=== PATIENT | female | born 1990 | race Caucasian/White ===

== ENCOUNTER 2018-09-30 16:51 | Inpatient (IN) ==
--- OUTSIDE RECORDS SUMMARY | 2018-09-30 16:55 | External Medical Summary | Continuity of Care Document ---
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 Refills: 0 Subutex 8 MG SUBL , M.D. Refills: 0 Medical Marijuana , M.D. Refills: 0 Procedures Non-stress test Date: 27-Sep-2018 History of Oral Surgery Tooth Extraction Status: Completed History of Pilonidal Cyst Resection Stat us: Completed Immunizations Fluzone Quadrivalent 0.5 ML Intramuscular Suspension P refilled Syringe On: 23-Mar-2018 16:22 Lot #: [id number], SANOFI PASTEUR Tdap (Adacel) On: 07-Jul-2018 16:17 Lot #: [id number], SANOFI PASTEUR Family History Grandfather Family history of diabetes mellitus (V18.0) (Z83.3) Status: Active Plan of Treatment Planned Observations Planned Goals not documented Results Non-stress test (Pending) Laboratory: In House 27-Sep-2018 14:17 Non-Stress Test Reactive Vital Signs 29-Sep-2018 14:57 Systolic 126 mm[Hg] Diastolic 80 mm[Hg] Weight 236.2 lb Height 66.5 in BSA Calculated 2.16 m2 BMI Calculated 37.55 kg/m2 27-Sep-2018 13:53 Systolic 118 mm[Hg] Diastolic 82 mm[Hg] Weight 235.5 lb Height 66.5 in BSA Calculated 2.16 m2 BMI Calculated 37.44 kg/m2 22-Sep-2018 15:45 Systolic 124 mm[Hg] Diastolic 80 mm[Hg] Weight 232.6 lb Height 66.5 in BSA Calculated 2.14 m2 BMI Calculated 36.98 kg/m2 15-Sep-2018 16:09 Systolic 122 mm[Hg] Diastolic 76 mm[Hg] Weight 229.0 lb Height 66.5 in BSA Calculated 2.13 m2 BMI Calculated 36.41 kg/m2 01-Sep-2018 15:18 Systolic 110 mm[Hg] Diastolic 80 mm[Hg] Weight 231.125 lb Height 66.5 in BSA Calculated 2.14 m2 BMI Calculated 36.75 kg/m2 Encounters Appointment; Karan Orozco M.D. 29-Sep-2018 14:40 Encounter Diagnosis: Problem not documented Appointment; So Orellana M.D. 27-Sep-2018 14:00 Encounter Diagnosis: Problem not documented Appointment; OB SC1, Nonstress Test 27-Sep-2018 13:30 Encounter Diagnosis: Problem not documented Appointment; Kaylee Sanford M.D. 22-Sep-2018 15:20 Encounter Diagnosis: Problem not documented Appointment; Norma Boo M.D. 15-Sep-2018 14:50 Encounter Diagnosis: Problem not documented Appointment; Kaylee Sanford M.D. 08-Sep-2018 9:50 Encounter Diagnosis: Problem not documented Appointment; So Orellana M.D. 01-Sep-2018 15:10 Encounter Diagnosis: Problem not documented Appointment; Norma Boo M.D. 25-Aug-2018 15:00 Encounter Diagnosis: Problem not documented Appointment; Rosa Franklin DO 11-Aug-2018 13:20 Encounter Diagnosis: Problem not documented Appointment; Francy Pham M.D. 21-Jul-2018 15:10 Encounter Diagnosis: Problem not documented Appointment; Usha Gil M.D. 07-Jul-2018 15:40 Encounter Diagnosis: Problem not documented Appointment; Rosa Franklin DO 16-Jun-2018 15:20 Encounter Diagnosis: Problem not documented Appointment; OBGYN SC2, Ultrasound 16-Jun-2018 14:00 Encounter Diagnosis: Problem not documented Appointment; Karan Orozco M.D. 09-May-2018 15:20 Encounter Diagnosis: Problem not documented Appointment; OBGYN SC2, Ultrasound 09-May-2018 14:15 Encounter Diagnosis: Problem not documented Appointment; Karan Orozco M.D. 05-May-2018 15:00 Encounter Diagnosis: Problem not documented Appointment; EMAIL DEVELOPER SC1, Procedure Room 05-May-2018 15:00 Encounter Diagnosis: Problem not documented Appointment; Rosa Franklin DO 26-Apr-2018 14:00 Encounter Diagnosis: Problem not documented Appointment; Norma Boo M.D. 11-Apr-2018 13:50 Encounter Diagnosis: Problem not documented Appointment; Karan Orozco M.D. 23-Mar-2018 12:00 Encounter Diagnosis: Problem not documented Appointment; OB SC1, Procedure Rm 23-Mar-2018 12:00 Encounter Diagnosis: Problem not documented Appointment; OBGYN SC1, Ultrasound 23-Mar-2018 12:00 Encounter Diagnosis: Problem not documented Appointment; OB SC1, Nursing Station 15-Mar-2018 10:45 Encounter Diagnosis: Problem not documented Appointment; OB SC1, Nursing Station 14-Mar-2018 8:45 Encounter Diagnosis: Problem not documented
[2018-09-30] MEDS ORDERED: PENICILLIN G POTASSIUM 3 MU in DEXTROSE 5% 100 ML IV PRN (17:35)
[2018-09-30] MEDS ORDERED: OXYTOCIN 30 UNITS/500 ML BAG IV PRN ×3 (17:35→23:27)
[2018-09-30] MEDS ORDERED: LACTATED RINGER'S 1,000 ML IV PRN (17:35)
[2018-09-30] MEDS ORDERED: PENICILLIN G POTASSIUM 6 MU in DEXTROSE 5% 250 ML IV STA (17:35)
--- NOTE | 2018-09-30 17:35 | History & Physical Report ---
Date of Service September 30, 2018 Assessment & Plan (1) Full-term PROM with onset of labor more than 24 hours after rupture: admit, iv, labs. gbs pos, start pcn. start pitocin if no labor by 6hr from rom. pt aware. (2) Group B streptococcal infection during : History of Present Illness Chief Complaint: leaking fluid Primary Care Provider: Bjorn Richard PA-C 28yo at 40+wks ega presents to L&D with above cc. Clear fluid leak since 1am. Gross srom per nurse. No ctx. pnc c/b 1. GBS pos 2. 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 Smoker 4. Medical MJ use. 5. Abnl pap, needs colpo pp Pnl: rh pos, ri, gbs pos obh: g1 gynh: no stds, abnl pap, colpo in preg, needs repeat pp pmh: h/o opiod abuse, smoker, medical MJ use, depression psh: wisdom teeth, pilonidal cyst sh: +tobacco, mj, no etoh fh: no gregory anom or mr allg: nkda meds: pnv, subutex, medical MJ Patient History Social History Preferred Language: Polish Beliefs That Will Affect Care: None marital status: Single Current Living Situation: Significant Other Other Information That Helps Us Care for You: No Feels Safe at Home: Yes Safety Concerns: Feels Safe At This Time Smoking Status: Current every day smoker Tobacco Type: cigarettes Cigarettes Per Day: 3 Hx Alcohol Use: No Hx Substance Use: Yes substance use type: marijuana Review of Systems per hpi Physical Exam Constitutional: WD/WN, vitals as above Respiratory: normal respiratory effort, lungs clear to auscultation Cardiovascular: Rate/Rhythm: regular rate and regular rhythm Gastrointestinal (Abdomen): gravid nt, efw 7-8# Musculoskeletal: nt calves. Genitourinary: OB Exam Abdomen: + vertex (by us) Manual OB Exam: + cervical dilation 3 cm, + cervical effacement (75%) and + station -2 OB Exam Monitor Tracing: + external FHT monitor used (130 mod variability, categ 1), + external uterine monitor used (no ctx) and + category I cephalic by us Results & Data Vital Signs (Past 12 Hours) Vital Signs Temp Pulse Resp BP 09/30/18 16:54 36.7 C 108 H 20 121/76
[2018-09-30 18:10] LABS: Hematocrit (blood only) 36.3 % (37-47); Hemoglobin 11.9 g/dL (12.0-16.0); Mean Corpuscular Volume 80.8 fL (80-100); Platelet Count 282 K/uL (130-400); RDW Coefficient of Variation 14.7 % (11.5-14.5); RDW Standard Deviation 43.3 fL (36.4-46.3); Red Blood Count 4.49 M/uL (4.2-5.4); White Blood Count 13.51 K/uL (4.8-10.8)
[2018-09-30 18:13] LABS: Mean Corpuscular Hgb Conc 32.8 g/dL (32-36)
[2018-09-30 18:28] LABS: Amphetamines+Metham, Urine Neg (Neg); Barbiturates, Urine Neg (Neg); Benzodiazepine, Urine Neg (Neg); Cocaine, Urine Neg (Neg); MDMA (Ecstacy), Urine Neg (Neg); Methadone, Urine Neg (Neg); Opiate, Urine Neg (Neg); Phencyclidine, Urine Neg (Neg)
[2018-09-30] MEDS ORDERED: BUPIVACAINE 0.25% 30 ML VIAL ONE (20:44)
[2018-09-30] MEDS ORDERED: ePHEDrine sulfate 50 MG/ML AMP ONE (20:45)
[2018-09-30] MEDS ORDERED: fentaNYL citrate 100 MCG/2 ML VIAL ONE (20:45)
[2018-09-30] MEDS ORDERED: fentaNYL 2MCG/ML ROPIV 1.25MG/ML 100 ML BAG EPI ONE (20:46)
--- NOTE | 2018-09-30 20:51 | Anesthesiology Consultation ---
Date of Service September 30, 2018 Assessment & Plan (1) Encounter for pre-operative examination: Chart Review Chart Review: Patient NOT seen in Pre Admission Testing and Acceptable Risk for Labor Epidural Consults Requested none History Height/Weight Height: 5 ft 6 in Weight: 106.594 kg Allergies Allergy/AdvReac Type Severity Reaction Status Date / Time No Known Allergies Allergy Verified 09/30/18 18:04 Medications Home Medications Medication Instructions Recorded Confirmed Last Taken buprenorphine HCl 8 mg SUBLINGUAL DAILY 09/30/18 09/30/18 09/29/18 10:00 vit-iron fum-folic ac 1 tab PO DAILY 09/30/18 09/30/18 09/30/18 08:00 [ Vitamin] Active Medications Generic Name Dose Route Start Last Admin Trade Name Freq PRN Reason Stop Dose Admin Lactated Ringer's 1,000 mls @ 125 mls/hr 09/30/18 17:35 09/30/18 18:26 Lr IV 10/02/18 17:34 125 mls/hr .Q8H PRN Administration L&D Protocol Protocol Oxytocin 30 units in 500 mls @ 3 mls/hr 09/30/18 17:42 09/30/18 20:30 Pitocin IV 10/02/18 17:41 0.18 units/hr .Q24H PRN 3 mls/hr Labor Induction/Augmentation Titration Protocol 0.18 UNITS/HR Past Medical History Medical History History of abnormal cervical Pap smear ASCUS PROBABLE MARTA I, REPEAT COLPO IN 6 WEEKS complicated by subutex maintenance, antepartum took subutex 09/29/2018 Exercise / Class Metabolic Activity II 4-5 Yardwork/Stairs/Walk up hill Past Surgical History pilonidal cyst Past Anesthesia History No Hx of Anesthesia Complications and No Family Hx of Anesthesia Complications History of PONV No Hx of PONV and No Hx of Motion Sickness Social History Smoking Status: Current every day smoker tobacco type: cigarettes Smoking cigarettes per day: 3 Hx Alcohol Use: No Hx Substance Use: Yes substance use type: marijuana Physical Exam Vital Signs Last Vital Signs Temp 37.0 C 09/30/18 19:00 Pulse 85 09/30/18 20:23 Resp 18 09/30/18 19:00 BP 126/89 09/30/18 20:23 Testing Laboratory Results 09/30/18 17:56
[2018-09-30] MEDS ORDERED: OXYCODONE/ACETAMINOPHEN 5mg/325mg TAB PO PRN (23:27)
[2018-09-30] MEDS ORDERED: ACETAMINOPHEN 325 MG TAB PO PRN (23:27)
[2018-09-30] MEDS ORDERED: OXYTOCIN 20 UNITS in LACTATED RINGER'S 1,000 ML IV SCH (23:30)
[2018-09-30] MEDS ORDERED: SUPERCREAM 0.870% 15 GM JAR EXT PRN (23:37)
[2018-09-30] MEDS ORDERED: DIPHTHERIA/TETANUS/PERTUSSIS 0.5 ML SYR/VIAL IM ONE (23:37)
[2018-09-30] MEDS ORDERED: HYDROCORTISONE ACETATE 25 MG SUPP PR PRN (23:37)
[2018-09-30] MEDS ORDERED: BENZOCAINE 20% AER SPR 82.5 GM CAN EXT PRN (23:37)
--- NOTE | 2018-10-01 00:16 | Delivery Summary ---
DATE OF OPERATION: 09/30/2018 DELIVERY SUMMARY: The patient dilated to complete and pushed to deliver viable female , Apgars 8 and 9 via over small vaginal laceration. Mouth and nose bulb suctioned at the perineum. Nuchal cord x1 noted and not reduced. The shoulders and body delivered through. vigorous and crying at . Cord blood obtained. Placenta delivered spontaneous and intact, 3-vessel cord. Hemostasis achieved with dilute Pitocin and uterine massage. Cervix and sulci intact. Small vaginal laceration repaired with a single [id number] suture of 3-0 Vicryl for excellent hemostasis. EBL 300 mL. Mother and baby stable in recovery. I attest to the content of the Intraoperative Record and any orders documented therein. Any exception s are noted below.
--- NOTE | 2018-10-01 02:33 | Anesthesia Procedure Note ---
Date of Service October 01, 2018 Anesthesia Post Epidural Note Vital Signs Vital Signs: Temp Pulse Resp BP Pulse Ox 36.8 C 98 H 18 125/67 97 09/30/18 23:43 10/01/18 01:42 10/01/18 00:36 10/01/18 01:42 09/30/18 23:08 Pain Intensity Bilateral Abdomen: Pain Intensity: 5 Notes Mental Status: alert / awake / arousable Patient Amnestic to Procedure: No Nausea / Vomiting: adequately controlled Pain: adequately controlled Airway Patency, RR, SpO2: stable & adequate BP & HR: stable & adequate Hydration State: stable & adequate Neuraxial Anesthesia: was administered and sensory block is resolving Anesthetic Complications: no major complications apparent and Pt Satisfied with anesthetic care Epidural: Removed without complications and With tip intact
[2018-10-01] MEDS: IBUPROFEN 600 MG TAB PO PRN ×3 (05:55→21:06)
--- NOTE | 2018-10-01 07:55 | Obstetrical Progress Note ---
Date of Service October 01, 2018 Assessment & Plan (1) Normal delivery at term: stable, routine care. Subjective Ambulation: ambulating normally Voiding: no voiding problems Diet Tolerance:: regular diet Lochia:: Small Feeding Type:: breast feeding doing well Physical Exam Constitutional WD/WN, vitals as above Respiratory normal respiratory effort, lungs clear to auscultation Cardiovascular Rate/Rhythm: regular rate and regular rhythm Gastrointestinal (Abdomen) Inspection/Auscultation: abdomen normal to inspection Percussion/Palpation: abdomen soft Fundus firm 2cm down Musculoskeletal nt calves Psychiatric A+Ox3, euthymic affect Results & Data Vital Signs (Past 12 Hours) Vital Signs Temp Pulse Pulse Resp BP BP Pulse Ox 10/01/18 07:44 36.8 C 82 16 118/77 10/01/18 02:10 36.9 C 90 18 120/82 10/01/18 01:42 98 H 125/67 10/01/18 01:26 96 H 132/77 10/01/18 01:11 88 131/74 10/01/18 00:57 90 130/61 10/01/18 00:42 86 153/73 H 10/01/18 00:36 90 18 143/88 H 10/01/18 00:11 93 H 130/67 09/30/18 23:56 100 H 129/68 09/30/18 23:46 93 H 130/60 09/30/18 23:43 36.8 C 93 H 18 178/74 H 09/30/18 23:26 101 H 117/78 09/30/18 23:22 102 H 112/71 09/30/18 23:08 106 H 97 09/30/18 23:03 100 H 98 09/30/18 22:58 99 H 98 09/30/18 22:57 103 H 112/80 09/30/18 22:53 98 H 98 09/30/18 22:48 105 H 95 09/30/18 22:47 98 H 94 09/30/18 22:43 96 H 96 09/30/18 22:41 93 H 108/71 09/30/18 22:38 99 H 96 09/30/18 22:33 96 H 96 09/30/18 22:30 20 09/30/18 22:28 101 H 95 09/30/18 22:27 90 105/66 09/30/18 22:23 92 H 96 09/30/18 22:18 90 97 09/30/18 22:13 83 96 09/30/18 22:11 82 129/85 09/30/18 22:08 81 96 09/30/18 22:03 80 97 09/30/18 21:58 81 96 09/30/18 21:57 85 132/91 09/30/18 21:53 97 H 98 09/30/18 21:48 86 96 09/30/18 21:44 86 134/88 09/30/18 21:43 87 97 09/30/18 21:40 85 131/81 09/30/18 21:38 91 H 97 09/30/18 21:37 91 H 132/74 09/30/18 21:34 93 H 123/80 09/30/18 21:33 95 H 97 09/30/18 21:31 48 L 125/75 09/30/18 21:28 88 136/67 99 09/30/18 21:25 87 134/80 09/30/18 21:23 92 H 100 09/30/18 21:22 86 132/80 09/30/18 21:19 91 H 123/71 09/30/18 21:18 82 100 09/30/18 21:16 86 125/59 L 09/30/18 21:15 85 116/62 09/30/18 21:13 87 100 09/30/18 21:10 132/89 09/30/18 21:08 83 100 09/30/18 21:06 74 132/88 09/30/18 21:03 90 100 09/30/18 21:00 36.8 C 20 09/30/18 20:58 88 100 09/30/18 20:53 83 100 09/30/18 20:23 85 126/89
[2018-10-01] MEDS: DOCUSATE SODIUM 100 MG CAP PO SCH ×2 (08:54→21:06)
[2018-10-01] MEDS: PRENATAL VITAMIN 1 TAB PO SCH (08:54)
[2018-10-01] MEDS: BUPRENORPHINE HCL 8 MG SUBL SL SCH (08:55)
--- NOTE | 2018-10-02 05:55 | Obstetrical Progress Note ---
Date of Service <Fritz Lundberg MD - Last Filed: 10/02/18 06:31> October 02, 2018 Assessment & Plan <Fritz Lundberg MD - Last Filed: 10/02/18 06:31> (1) Normal delivery at term: Marry Dempsey is a 28yo who presented at 40+ now s/p PPD#2 - She is GBS positive, Rh positive, Rubella Immune - Feels well today. Eating well, voiding well, ambulating well. - Pain well controlled with ibuprofen 600mg Q4H PRN. - well, some difficulty with latch but improving - Baby will likely stay 4-5 days per peds 2/2 subutex treatment during - Routine care - Slightly tearful on whether it was OK she was on subutex during . Reassurance provided, continue to follow and eval for PP depression at f/u. - After discharge will have [address] Boo. Will be discharged to [facility] while baby is still here. Subjective <Fritz Lundberg MD - Last Filed: 10/02/18 06:31> Ambulation: ambulating normally Voiding: no voiding problems Passing Gas:: Yes Diet Tolerance:: regular diet Lochia:: Small Feeding Type:: breast feeding Current Pain Level(1-10): 3 Review of Systems Denies fever, chills, sweats Denies shortness of breath, difficulty breathing, chest pain, palpitations, chest pressure. Denies breast pain. Denies dysuria. Denies headache. Physical Exam <Fritz Lundberg MD - Last Filed: 10/02/18 06:31> General: Alert, oriented. No acute distress. Cardiac: Regular rate and rhythm, no murmurs/rubs/gallops. Respiratory: Clear to auscultation anterior and posteriorly, no wheezes/rales/rhonchi. No increased work of breathing. Symmetrical chest rise. No respiratory distress. Abdomen: Soft, nontender, nondistended. Bowel sounds present. Uterus: Uterine fundus firm, palpable 2cm below umbilicus. Lower Extremities: Trace pedal edema, no new/increased lower extremity edema or swelling. No deep calf pain. Teodoro's negative bilaterally. Results & Data <Fritz Lundberg MD - Last Filed: 10/02/18 06:31> Vital Signs (Past 12 Hours) Vital Signs Temp Pulse Resp BP 10/01/18 23:50 37.0 C 99 H 18 115/74 10/01/18 20:30 36.9 C 95 H 20 111/69 <Norma Boo MD, FACOG - Last Filed: 10/02/18 06:57> Co-Signing Physician Notes Resident Physician Supervision Note: I interviewed and examined the patient. Discussed with Dr. Barraza and agree w ith findings and plan as documented in the note. Any exceptions or clarifications are listed here: Doing well, ready for discharge. aware of baby situation. pt had instructions reviewed and denies questions. Documented By: Norma Boo MD, FACOG Resident Activity Tracking <Fritz Lundberg MD - Last Filed: 10/02/18 06:31> Resident Involvement: Resident Care Provided Care Provided: Adult Hospital Medicine
[2018-10-02] MEDS: IBUPROFEN 600 MG TAB PO PRN ×2 (06:10→10:30)
[2018-10-02] MEDS: DOCUSATE SODIUM 100 MG CAP PO SCH (10:29)
[2018-10-02] MEDS: PRENATAL VITAMIN 1 TAB PO SCH (10:30)
[2018-10-02] MEDS: BUPRENORPHINE HCL 8 MG SUBL SL SCH (10:31)
== END 2018-10-02 12:00 | disposition home or self-care (01) | DRG 807 ==
LOC: OPB 16:51 → 4S1 16:53 → 4S2 10-01 02:39